=== PATIENT | female | born 1985 | race Caucasian/White ===

== ENCOUNTER 2018-07-19 14:01 | Emergency (ER) | payer OTHER ==
[2018-07-19] MEDS ORDERED: Tetan/Diph/Pertus SYR(Tdap)* 0.5 ML SYR(BOOSTRIX) use SYR IM ONE (14:57)
[2018-07-19] MEDS ORDERED: Lidocaine 1%* 5 ML VIAL INJ ONE (15:26)
--- NOTE | 2018-07-19 15:26 | UC ---
Laceration HPI - HPI Summary HPI Summary: 33 y/o female presents to the urgent care c/o cutting her L thumb w/ a slicer at work today around 1430pm. Pt states last tetanus vaccines was on 2012. 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 Pain at touch is 3/10 and bleeding stopped w/ pressure. Pt can move thumb w/o any difficulty and deneis numbness or tingling sensation over Thumb or hand. Pt denies fever, SOB, chest pain, abdominal pain, N/V/D. - History Of Current Complaint Chief Complaint: UCLaceration Stated Complaint: LT THUMB INJURY Time Seen by Provider: 07/19/18 14:57 Hx Obtained From: Patient Hx Last Menstrual Period: 07/13/2018 Laceration Location: Finger - left thumb laceration w/ a slicer at work Mechanism Of Injury: Sharp Trauma Onset/Duration: Sudden Onset, Lasting Hours - 1hrs Severity: Mild Pain Intensity: 3 Pain Scale Used: 0-10 Numeric Aggravating Factors: Movement, Other: - touch Related History: Dominant Hand Right - Allergies/Home Medications Allergies/Adverse Reactions: Allergies Allergy/AdvReac Type Severity Reaction Status Date / Time No Known Allergies Allergy Verified 07/19/18 14:37 Home Medications: Home Medications Norelgestromin/Ethin.estradiol [Xulane Patch] 1 each TD DAILY 07/19/18 [History Confirmed 07/19/18] PMH/Surg Hx/FS Hx/Imm Hx Previously Healthy: Yes - Pt denies PMHX - Surgical History Surgical History: Yes Surgery Procedure, Year, and Place: urethral diverticulum removal 2016 - Family History Known Family History: Positive: None - Pt denies PMHX - Social History Occupation: Employed Full-time Lives: With Family Alcohol Use: Occasionally Substance Use Type: None Smoking Status (MU): Never Smoked Tobacco - Immunization History Most Recent Tetanus Shot: 2012 Review of Systems All Other Systems Reviewed And Are Negative: Yes Constitutional: Positive: Negative Skin: Positive: Other - lacerarion of left thumb w/ a slicer Eyes: Positive: Negative ENT: Positive: Negative Respiratory: Positive: Negative Cardiovascular: Positive: Negative Gastrointestinal: Positive: Negative Genitourinary: Positive: Negative Motor: Positive: Negative Neurovascular: Positive: Negative Musculoskeletal: Positive: Other: - left thumb pain. Neurological: Positive: Negative Psychological: Positive: Negative Is Patient Immunocompromised?: No Physical Exam - Summary Physical Exam Summary: Vital Signs Reviewed: Yes General: well developed, well nourished female sitting in the examining table w/ o any apparent distress Eye Exam: Normal Eyes: Positive: Conjunctiva Clear - PERRLA, EOMI, fundi grossly normal ENT: Positive: Normal ENT inspection, Hearing grossly normal, Pharynx normal, TMs normal Neck: Positive: Supple, Nontender, No Lymphadenopathy Respiratory: Positive: Chest non-tender, Lungs clear, Normal breath sounds, No respiratory distress Cardiovascular: Positive: RRR, No Murmur, Pulses Normal, Brisk Capillary Refill Abdomen Description: Positive: Nontender, No Organomegaly, Soft. Negative: CVA Tenderness (R), CVA Tenderness (L) Bowel Sounds: Positive: Present Musculoskeletal: Positive: Strength Intact, ROM Intact, No Edema Neurological: Positive: Alert, Muscle Tone Normal Psychological Exam: Normal Skin: Positive:Lateral side of LF thumb near PIPJ w/ a horizontal linear superficial laceration about 1.2.cm in size, bleeding, no foreign body observed. mild tenderness to palpation, no ecchymosis around Thumb. FROM of LF thumb, sensation intact, capillary refill brisk, and pulses WNL. Triage Information Reviewed: Yes Vital Signs: Initial Vital Signs Temp 98.3 F 07/19/18 14:38 Pulse 75 07/19/18 14:38 Resp 18 07/19/18 14:38 BP 113/71 07/19/18 14:38 Pulse Ox 100 07/19/18 14:38 Laceration Repair - Laceration Repair 1 Description: Linear - horizontal superficial laceration on the left thumb lacteral aspect of the PIPJ Laceration Size After Repair: Length (cm) - 1.2cm Modified For Repair: No Type Injection: Digital Anesthesia Used: 1.0% Lido - 2ml Cleansing Completed Via Routine Prep: Yes Irrigation With Pressure Irrigation Device: Yes Closure Material: Sutures - 3 Closure Method: Single Layer Suture Of: Skin, SQ Suture Type: Nylon - 5.0 Laceration Course/Dx - Course/Dx Course Of Treatment: 33 y/o female presents to the urgent care c/o cutting her L thumb w/ a slicer at work today around 1430pm. Pt states last tetanus vaccines was on 2012. 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 Pain at touch is 3/10 and bleeding stopped w/ pressure. Pt can move thumb w/o any difficulty and denies numbness or tingling sensation over Thumb or hand. Pt denies fever, SOB, chest pain, abdominal pain, N/V/D. Hx obtained. Pt w/ a horizontal superficial linear laceration over the lateral aspect of the left thumb, about 1.2 cm in size. FROM of left thumb on examination. LACERATION PROCEDURE NOTE: . Copious irrigation was done with saline by the nurse and the wound explored. There was no FB or deep structure injury noted. FROM of left thumb. procedure was explained and consent obtained, Timeout performed. The wound was anesthetized with 1 mL of 1% lido with good anesthesia. Sterile drape and prep were done. There were 3 sutures with 5.0 nylon type of suture. The length of the wound after closure was 1.2cm. No debridement done. Pt tolerated the procedure well without adverse effects. Neurovascular intact and FROM. Tdap ordered and applied by nurse. Pt advised to f/u suture removal in 10 days and if any signs of infection develop to immediately return to the urgent care of PCP for further management and treatment. Pt understood and agreed and left the clinic ambulating A&Ox3. . - Differential Dx - Laceration/Wound Differental Diagnoses: Abrasion, Avulsion, Cellulitis, Laceration, Puncture Wound, Tendon Laceration - Diagnosis Provider Diagnosis: Laceration of left thumb Discharge - Sign-Out/Discharge Documenting (check all that apply): Patient Departure - d/C home All imaging exams completed and their final reports reviewed: No Studies - Discharge Plan Condition: Stable Disposition: HOME Patient Education Materials: Care For Your Stitches (ED), Laceration (ED) Referrals: [facility] [place] [facility] [Outside] - 1 Week Additional Instructions: 1-Please apply Bacitracin topical antibiotic over the wound. Keep wound clean and dry 2- F/u suture removal in 10-12 days w/ your PCP or here at the urgent care. 3-Take Ibuprofen or Tylenol PO q6-8hrs prn for pain or swelling. 4- If you develop fever or redness around your thumb please return to the Urgent care or your PCP for further management. - Billing Disposition and Condition Condition: STABLE Disposition: Home
== END 2018-07-19 16:35 | disposition home or self-care (01) ==
LOC: UCEAST 14:01
DX: S61.012A Laceration without foreign body of left thumb without damage to nail, initial encounter (principal); W31.89XA Contact with other specified machinery, initial encounter; Y92.89 Other specified places as the place of occurrence of the external cause; Y99.0 Civilian activity done for income or pay; Z23 Encounter for immunization; Z79.3 Long term (current) use of hormonal contraceptives
CPT/HCPCS: 12001; 90715; 99201; G0463

== ENCOUNTER 2018-07-30 09:22 | Emergency (ER) | payer OTHER ==
--- NOTE | 2018-07-30 09:50 | UC ---
HPI Wound/Suture Re-check - HPI Summary HPI Summary: Patient had 3 sutures placed in her left thumb on 07/19/18. Patient here to have sutures removed. Patient without a concerns related to wound healing. Wound is clean dry and intact. Patient's tetanus was in 2012. - History Of Current Complaint Stated Complaint: STITCHES REMOVED Hx Last Menstrual Period: 07/13/2018 - Allergies/Home Medications Allergies/Adverse Reactions: Allergies Allergy/AdvReac Type Severity Reaction Status Date / Time No Known Allergies Allergy Verified 07/30/18 09:49 PMH/Surg Hx/FS Hx/Imm Hx Previously Healthy: Yes - Surgical History Surgical History: Yes Surgery Procedure, Year, and Place: urethral diverticulum removal 2016 - Family History Known Family History: Positive: None - Pt denies PMHX, Non-Contributory - Social History Occupation: Employed Full-time Lives: With Family Alcohol Use: Occasionally Substance Use Type: None Smoking Status (MU): Never Smoked Tobacco - Immunization History Most Recent Tetanus Shot: 2012 Review of Systems All Other Systems Reviewed And Are Negative: Yes Skin: Positive: Other - sutures left thumb Is Patient Immunocompromised?: No Physical Exam - Summary Physical Exam Summary: Vital Signs Reviewed: Yes A+Ox3, no distress Eyes: Conjunctiva Clear ENT: Hearing grossly normal neck: supple Respiratory: Positive: No respiratory distress, No accessory muscle use Cardiovascular: skin color reflect adequate perfusion Musculoskeletal Exam: CORRALES x 4 without difficulty Neurological: Positive: Alert, ambulatory without difficulty Psychological: Positive: Normal Response To Family Skin: Positive: left thumb - 2 sutures, c/d/i removed without difficulty Triage Information Reviewed: Yes Course/Dx - Course Course Of Treatment: Patient reports for suture removal. Wound clean dry and intact. - Diagnosis Provider Diagnosis: Visit for suture removal Discharge - Sign-Out/Discharge Documenting (check all that apply): Patient Departure All imaging exams completed and their final reports reviewed: No Studies - Discharge Plan Condition: Stable Disposition: HOME Patient Education Materials: Stitches Removal (ED) Referrals: No Primary Care Phys,NOPCP [Primary Care Provider] - Additional Instructions: - okay to alternate ibuprofin (advil, motrin) and tylenol every 3hours as needed for pain -apply a thin layer of antibiotic ointment (neosporin, polysporin) and bandaid to protect the wound. \ - continue to monitor for signs of infection - reddness, red streaking, odor, green drainage - Contact your doctor or return here with questions or concerns - Billing Disposition and Condition Condition: STABLE Disposition: Home
[2018-07-30 09:52] VITALS: BP 121/71
== END 2018-07-30 10:05 | disposition home or self-care (01) ==
LOC: UCEAST 09:22
DX: S61.002D Unspecified open wound of left thumb without damage to nail, subsequent encounter (principal); X58.XXXD Exposure to other specified factors, subsequent encounter
CPT/HCPCS: 99211; G0463

== ENCOUNTER 2019-04-30 08:57 | Emergency (ER) | payer OTHER ==
--- NOTE | 2019-04-30 10:31 | UC ---
Abdominal Pain Female HPI - HPI Summary HPI Summary: 34-year-old female presents with onset of epigastric pain 2 days ago. Describes pain as "sharp" and constant. Worsens after eating and with movement. Has tried Tums and Pepto-Bismol with no relief in symptoms. Reports frequently eats spicy foods. States having regular, normal, formed stools. Denies fever, chills, nausea, vomiting, diarrhea, back or flank pain, dysuria, frequency, urgency, or hematuria. - History of Current Complaint Chief Complaint: UCGI Stated Complaint: STOMACH ACHE Time Seen by Provider: 04/30/19 10:11 Hx Obtained From: Patient Hx Last Menstrual Period: Pain Intensity: 7 Allergies/Adverse Reactions: Allergies Allergy/AdvReac Type Severity Reaction Status Date / Time No Known Allergies Allergy Verified 04/30/19 09:16 Home Medications: Home Medications Norelgestromin/Ethin.estradiol [Xulane Patch] 1 each TD DAILY 07/19/18 [History Confirmed 04/30/19] Omeprazole 20 mg PO DAILY #14 capsule. 04/30/19 [Rx] PMH/Surg Hx/FS Hx/Imm Hx Previously Healthy: Yes - Denies significant PMH - Surgical History Surgical History: Yes Surgery Procedure, Year, and Place: urethral diverticulum removal 2016 - Family History Known Family History: Positive: Non-Contributory - Social History Occupation: Student Lives: With Family Alcohol Use: Occasionally Substance Use Type: None Smoking Status (MU): Never Smoked Tobacco - Immunization History Most Recent Tetanus Shot: 2012 Review of Systems All Other Systems Reviewed And Are Negative: Yes Constitutional: Negative: Fever, Chills Respiratory: Positive: Negative Cardiovascular: Positive: Negative Gastrointestinal: Positive: Abdominal Pain. Negative: Vomiting, Diarrhea, Nausea Genitourinary: Negative: Dysuria, Hematuria, Frequency, Urgency Musculoskeletal: Positive: Negative Neurological/Mental Status: Positive: Negative Is Patient Immunocompromised?: No Physical Exam - Summary Physical Exam Summary: GENERAL APPEARANCE: Well developed, well nourished, alert and cooperative, and appears to be in no acute distress. EYES: Conjunctiva clear. No drainage. EARS: External auditory canals and tympanic membranes clear, hearing grossly intact. NOSE: No nasal discharge. THROAT: Pharynx normal. No tonsilar inflammation, swelling, exudate, or lesions. Uvula midline. NECK: Neck supple, non-tender without lymphadenopathy. CARDIAC: Normal S1 and S2. No S3, S4 or murmurs. Rhythm is regular. There is no peripheral edema, cyanosis or pallor. Extremities are warm and well perfused. Capillary refill is less than 2 seconds. Peripheral pulses intact. LUNGS: Clear to auscultation without rales, rhonchi, wheezing or diminished breath sounds. ABDOMEN: Positive bowel sounds. Soft, nondistended. Mild epigastric tenderness without guarding or rebound. No masses or hepatosplenomegally. MUSKULOSKELETAL: ROM intact to all extremities. No joint erythema or tenderness. Normal muscular development. Normal gait. SKIN: Skin normal color, texture and turgor with no lesions or eruptions. Triage Information Reviewed: Yes Vital Signs: Initial Vital Signs Temp 96.5 F 04/30/19 09:12 Pulse 73 04/30/19 09:12 Resp 19 04/30/19 09:12 BP 111/73 04/30/19 09:12 Pulse Ox 100 04/30/19 09:12 Vital Signs Reviewed: Yes Diagnostics - Radiology No standard instances Radiology Interpretation Completed By: Radiologist Summary of Radiographic Findings: Order Information: US GALL BLADDER. Indication: Epigastric pain. Real-time sonography of the right upper quadrant was performed. Liver is normal in size measuring 16.4 cm in length. No focal lesions or intrahepatic ductal dilatation is noted. The gallbladder demonstrates no gallstones. The gallbladder is partially contracted. The common duct measures 0.4 cm. The right kidney measures 10.0 x 4.1 x 4.4 cm with no hydronephrosis. The pancreas demonstrates no mass or pancreatic duct dilatation. Aorta and inferior vena cava are unremarkable. IMPRESSION: No evidence of cholelithiasis is noted. Partially contracted gallbladder. Abd Pain Female Course/Dx - Course Course Of Treatment: 34-year-old female presents with onset of epigastric pain 2 days ago. Describes pain as "sharp" and constant. Worsens after eating and with movement. Has tried Tums and Pepto-Bismol with no relief in symptoms. Reports frequently eats spicy foods. States having regular, normal, formed stools. Denies fever, chills, nausea, vomiting, diarrhea, back or flank pain, dysuria, frequency, urgency, or hematuria. Afebrile. Vital signs stable. Patient had a soft, nondistended abdopmen with mild epigastric tenderness without guarding or rebound. No masses or hepatosplenomegally. Remainder of exam was unremarkable. Gallbladder ultrasound was obtained and showed no evidence of cholelithiasis is noted. Reviewed results with the patient. We discussed that her symptoms could represent PUD versus GERD versus gastritis. We'll place her on omeprazole 20 mg daily 2 weeks. She is to follow-up with her primary care provider within the week especially if symptoms are not improving. Anticipatory guidance and warning symptoms were reviewed with the patient. Verbalizes understanding and agrees with plan of care. - Differential Dx/Diagnosis Differential Diagnosis: Gall Bladder Disease, Pancreatitis, Peptic Ulcer Disease , Other - Gastric reflux Provider Diagnosis: Epigastric pain Discharge ED - Sign-Out/Discharge Documenting (check all that apply): Patient Departure All imaging exams completed and their final reports reviewed: Yes - Discharge Plan Condition: Stable Disposition: HOME Prescriptions: Omeprazole 20 mg PO DAILY #14 capsule. Patient Education Materials: Epigastric Pain (ED) Referrals: Erlinda Rodrigues MD [Primary Care Provider] - 1 Week () Additional Instructions: The ultrasound of your gallbladder showed no evidence of gallstones or gallbladder disease. I suspect that your pain could be related to some gastritis, gastric reflux, or possibly peptic ulcer disease. Start omeprazole 20 mg daily for the next 2 weeks. Follow-up with your primary care provider in one week especially if symptoms are not improving. Seek immediate medical attention in the emergency room if you develop a fever greater than 100.5 F, have severe abdominal pain, persistent vomiting, blood in her vomit or bowel movements, dark black bowel movements, or any worsening of symptoms. - Billing Disposition and Condition Condition: STABLE Disposition: Home
[2019-04-30 11:18] VITALS: BP 112/76
== END 2019-04-30 11:50 | disposition home or self-care (01) ==
LOC: UCEAST 08:57
DX: R10.13 Epigastric pain (principal)
CPT/HCPCS: 76705; 99212; G0463